=== PATIENT | male | born 1980 | race Caucasian/White ===

== ENCOUNTER → 2016-08-16 | Outpatient (CLI) | payer OTHER, MEDICAID, MEDICARE ==
[~2016-08-16] MED LIST: /DIVA12TA; AMBI10TA; CELEXA; XANA1TAB2
== END ==
LOC: M SMT 14:04
PROVIDERS: ATTEND Nurse Practitioner Women's Health
DX: Z72.51 High risk heterosexual behavior (principal); Z11.3 Encounter for screening for infections with a predominantly sexual mode of transmission